=== PATIENT | male | born 2000 | race Caucasian/White ===

== ENCOUNTER 2018-09-29 13:28 | Emergency (ER) | payer OTHER ==
[2018-09-29] MEDS ORDERED: METOCLOPRAMIDE 10 MG/2 ML VIAL IVP ONE (14:02)
[2018-09-29] MEDS ORDERED: KETOROLAC 15 MG/1 ML SDV IVP/IM ONE (14:02)
[2018-09-29] MEDS ORDERED: NS 1,000 ML IV ONE (14:02)
--- NOTE | 2018-09-29 14:02 | EDPHY ---
H & P Stated Complaint: migraines Time Seen by Provider: 09/29/18 13:50 HPI/ROS: HPI: This is a 18-year-old male who presents with Chief Complaint: Migraine headache Location: Frontal, bilateral temporal Quality: Headache Duration: 3 days Signs and Symptoms: no fever, + nausea, no vomiting, + photophobia, no noise sensitivity, no neck stiffness, no ear pain, no tinnitus, no nasal congestion, no sinus pressure, no weakness, no radiation, no aura, no neck stiffness, no vision changes, no rash Timing: Rapid onset, constant Severity: Moderate Context: Patient reports that he is a student at [employer] presents with 3 day history of frontal and bilateral temporal headache that moves from the front and forehead to the bilateral sides in a nonspecific pattern. Reports this feels like similar migraine headaches as is company by photophobia and nausea. Denies vomiting, fever, upper respiratory symptoms. Patient reports that weather changes and heat causes headaches. Multiple allergies, not taking any antihistamines. Missed class today. Eating and drinking over the last few days without any difficulty. Denies thunderclap symptoms or worst headache of life. Modifying Factors: No [id number] medications taken Comment: ROS: A comprehensive 10 system review of systems is otherwise negative aside from elements mentioned in the history of present illness. MEDICAL/SURGICAL/SOCIAL HISTORY: Medical history: Attention deficit hyperactivity disorder, migraine headaches diagnosed at age 8 Surgical history: Denies Social history: Originally from [place]. Nonsmoker. Family history noncontributory. CONSTITUTIONAL: Anxious, extremely talkative, young adult white male, awake and alert, no obvious distress HEENT: Atraumatic and normocephalic, PERRL, EOMI. Nares patent; no rhinorrhea; no nasal mucosal edema. Tympanic membranes clear. Oropharynx clear, no exudate and moist pink mucosa. Airway patent. No lymphadenopathy. No meningismus. Cardiovascular: Normal S1/S2, regular rate, regular rhythm, without murmur rub or gallop. PULMONARY/CHEST: Symmetrical and nontender. Clear to auscultation bilaterally. Good air movement. No accessory muscle usage. ABDOMEN: Soft, nondistended, nontender, no rebound, no guarding, no peritoneal signs, no masses or organomegaly. No CVAT. EXTREMITIES: 2/2 pulses, strength 5/5, no deformities, no clubbing, no cyanosis or edema. NEUROLOGICAL: no focal neuro deficits. GCS 15. Cranial nerves 2-12 grossly intact. Ambulatory without deficits. Speech normal. SKIN: Warm and dry, no erythema. no rash. Good capillary refill. Source: Patient Exam Limitations: No limitations - Personal History Current Tetanus/Diphtheria Vaccine: Unsure Current Tetanus Diphtheria and Acellular Pertussis (TDAP): Unsure - Medical/Surgical History Hx Asthma: No Hx Chronic Respiratory Disease: No Hx Diabetes: No Hx Cardiac Disease: No Hx Renal Disease: No Hx Cirrhosis: No Hx Alcoholism: No Hx HIV/AIDS: No Hx Splenectomy or Spleen Trauma: No - Social History Smoking Status: Never smoked Constitutional: Initial Vital Signs Temperature (C) 36.4 C 09/29/18 13:37 Heart Rate 90 09/29/18 13:37 Respiratory Rate 20 09/29/18 13:37 Blood Pressure 133/78 H 09/29/18 13:37 O2 Sat (%) 97 09/29/18 13:37 O2 Delivery Mode Room Air Allergies/Adverse Reactions: aloe vera Allergy (Verified 09/29/18 13:37) cat dander Allergy (Verified 09/29/18 13:37) cocoa [chocolate] Allergy (Verified 09/29/18 13:37) Home Medications: Medication Instructions Recorded Adderall 10 mg Tablet 09/29/18 Medical Decision Making ED Course/Re-evaluation: Vital signs reviewed and stable upon arrival. No systemic signs. No neurological deficits. IV access obtained and given 1 L normal saline, IV Ativan 1 mg, IV Reglan 10 mg , IV Benadryl 25 mg, IV Toradol 15 mg 1503: Reassessed patient who reports moderate relief of symptoms and asking to be discharged home. School excuse provided per request. Referral to student health clinic as needed. This patient was seen under the supervision of my primary supervising physician. I evaluated care for this patient independently. Differential Diagnosis: Headache including but not limited to subarachnoid hemorrhage, migraine headache , tension headache and infectious causes such as meningitis, pharyngitis and sinusitis. - Data Points Medications Given: Discontinued Medications Diphenhydramine HCl (Benadryl Injection) 25 mg IVP EDNOW ONE Stop: 09/29/18 14:03 Last Admin: 09/29/18 14:46 Dose: 25 mg Sodium Chloride (Ns) 1,000 mls @ 3,000 mls/hr IV EDNOW ONE Stop: 09/29/18 14:21 Last Admin: 09/29/18 14:38 Dose: 1,000 mls Ketorolac Tromethamine (Toradol) 15 mg IVP/IM EDNOW ONE Stop: 09/29/18 14:03 Last Admin: 09/29/18 14:39 Dose: 15 mg Lorazepam (Ativan Injection) 1 mg IVP EDNOW ONE Stop: 09/29/18 14:04 Last Admin: 09/29/18 14:42 Dose: 1 mg Metoclopramide HCl (Reglan Injection) 10 mg IVP EDNOW ONE Stop: 09/29/18 14:03 Last Admin: 09/29/18 14:49 Dose: 10 mg Departure - Departure Disposition: Home, Routine, Self-Care Clinical Impression: Headache Qualifiers: Headache type: unspecified Headache chronicity pattern: acute headache Intractability: not intractable Qualified Code(s): R51 - Headache Condition: Good Instructions: Migraine Headache (ED), Acute Headache (ED) Additional Instructions: Rest as much as possible until you are feeling better. Consume a minimum of 8-10 glasses of water or electrolyte fluid replacement drinks that include Gatorade, Powerade, Pedialyte. Take Tylenol 650 mg every 4 hours and/or Ibuprofen 600 mg every 8 hours with food as needed for pain/headache. Follow up with student health clinic if symptoms do not improve. Return to the ER immediately if you have progressive headaches, neurologic deficits, gait abnormality, visual disturbance, slurred speech, or any other symptom that concerns you. Referrals: [facility] [Clinic] - As per Instructions Stand Alone Forms: School Excuse
[2018-09-29] MEDS ORDERED: LORazepam 2 MG/ML INJ IVP ONE (14:03)
[2018-09-29 15:38] VITALS: BP 114/55
== END 2018-09-29 16:01 | disposition home or self-care (01) ==
DX: R51 Headache (principal)
CPT/HCPCS: 96374; J1200; J1885; J2060; J2765